=== PATIENT | female | born 1985 | race Caucasian/White ===

== ENCOUNTER 2018-08-26 02:06 | Inpatient (IN) | payer MEDICAID ==
[2018-08-26] VITALS (21 sets, daily range): BP systolic 84–116; BP diastolic 43–86; Ht 160 cm; Wt 78.1 kg
[~2018-08-26] VITALS: Ht 160 cm; Wt 78.1 kg
[2018-08-26] MEDS ORDERED: NEURONTIN800 MG PO (02:23)
[2018-08-26] MEDS ORDERED: ATIVAN0.5 MG PO (02:23)
[2018-08-26] MEDS ORDERED: LITHOBID 300 M300 MG PO (02:23)
[2018-08-26] MEDS ORDERED: BUTALB-APAP-CA1 EACH PO (02:23)
[2018-08-26] MEDS ORDERED: SEROQUEL200 MG PO (02:23)
[2018-08-26 02:26] LABS: HEMATOCRIT 34.5 % (36.0-48.0); HEMOGLOBIN 11.2 g/dL (12-16); LYMPHOCYTES 14.5 % (15-50); MCH 30.1 pg (26.0-34.0); MCHC 32.5 g/dL (31.0-37.0); MCV 92.7 fL (80.0-100.0); MEAN PLATELET VOLUME 8.6 fL (7.4-10.4); NEUTROPHILS 81.2 % (40-80); PLATELET COUNT 290 10x3/uL (130-400); RBC 3.72 10x6/uL (4.00-5.40); RDW 16.3 % (11.5-14.5); WBC 15.2 10x3/uL (4.8-10.8)
[2018-08-26 02:37] LABS: LITHIUM 2.86 mmol/L (0.60-1.20); SALICYLATES 4.3 mg/dL (2.8-20.0)
[2018-08-26 02:39] LABS: ALBUMIN 3.6 g/dL (3.4-5.0); ALKALINE PHOSPHATASE 103 U/L (46-116); ALT (SGPT) 46 U/L (10-68); BILIRUBIN - TOTAL 0.23 mg/dL (0.2-1.3); CALC OSMOLALITY 270 mosm/kg (275-300); CHLORIDE - SERUM 104 mmol/L (98-107); CREATININE - SERUM 0.8 mg/dL (0.6-1.3); GLUCOSE 83 mg/dL (74-106); MAGNESIUM - SERUM 1.9 mg/dL (1.8-2.4); POTASSIUM - SERUM 3.5 mmol/L (3.5-5.1); PROTEIN - SERUM 8.1 g/dL (6.4-8.2); SODIUM 137 mmol/L (136-145); UREA NITROGEN 8 mg/dL (7-18); eGFR NON AFRICAN AMERICAN 86 mL/min (90-120)
--- NOTE | 2018-08-26 03:06 | NUR ---
PATIENT HAS NS INFUSING AT THIS TIME TO LEFT FA VIA PUMP.
--- NOTE | 2018-08-26 03:07 | NUR ---
PATIENT LAYING IN BED WATCHING TV, RESP REGULAR. NO DISTRESS.
--- NOTE | 2018-08-26 03:24 | NUR ---
REPORT GIVEN TO BERTHA POWERS.
--- NOTE | 2018-08-26 03:46 | NUR ---
NS STOP TIME IS 7870.
--- NOTE | 2018-08-26 03:55 | NUR ---
RECEIVED PT TO ROOM 2308 VIA WHEELCHAIR FROM THE ED. PT IS AWAKE, ALERT, AND ORIENTED X4. PT ADMITS THAT SHE TOOK LITHIUM INTENTIONALLY TO CAUSE HERSELF HARM. PT IS CONCERNED ABOUT GOING TO INPATIENT PSYCH, BUT AGREES THAT SHE NEEDS TO. ADMISSION ASSESSMENT COMPLETED, SEE FLOWSHEET FOR DETAILS. NO SIGNS OF ACUTE DISTRESS. WILL CONTINUE TO MONITOR.
[2018-08-26] MEDS ORDERED: ZOLOFT100 MG PO (04:10)
--- NOTE | 2018-08-26 05:12 | NUR ---
PT IS RESTING IN BED WATCHING TV. PT REQUESTED TO GO TO THE BATHROOM, BEDSIDE COMMODE PROVIDED. NO SIGNS OF ACUTE DISTRESS. WILL CONTINUE TO MONITOR.
--- NOTE | 2018-08-26 07:20 | NUR ---
SHIFT REPORT RECEIVED. RESTING COMFORTABLY IN BED. IN GOOD SPIRITS. REPORTS SLIGHT DISCOMFORT ON HER BACK. HAS PIV ON LEFT FOREARM WITH NS AT 150ML/HR. PIV ON RIGHT FOREARM SL. VSS. NO FEVER NOTED. ON ROOM AIR. DENIES HAVING THOUGHTS OF HARMING SELF. SHIFT ASSESSMENT COMPLETED. SAFETY MEASURES IN PLACE. WILL CONTINUE TO MONITOR.
--- NOTE | 2018-08-26 09:00 | NUR ---
RESTING COMFORTABLY IN BED. UP TO BEDSIDE COMMODE WITH MINIMAL ASSIST. VOIDED ABOUT 400ML OF CLEAR YELLOW URINE. NO FURTHER NEEDS. WILL CONTINUE TO MONITOR.
--- NOTE | 2018-08-26 10:00 | NUR ---
OFFERED BATH AT THIS TIME. PT REFUSED. WILL LET NURSE KNOW IF SHE CHANGES HER MIND.
--- NOTE | 2018-08-26 10:51 | NUR ---
Spoke with Addy at poison control. Reported latest lithium level.
--- NOTE | 2018-08-26 12:05 | NUR ---
CALLED PLACE TO DUANE RAMIREZ PER PT REQUEST. NOTIFIED HIM THAT PATIENT HAD MADE IT TO [facility] AND WAS STABLE AT THIS TIME.
--- NOTE | 2018-08-26 14:22 | NUR ---
DR. CASILLAS RESTARTED SEROQUEL 200MG DIALY, ZOLOFT 200MG PO DAILY, AND FIORICET 1 TAB Q 4HR PRN. HE ALSO ORDERED NICOTINE PATCH.
[2018-08-26 14:31] LABS: CALC OSMOLALITY 276 mosm/kg (275-300); CALCIUM 8.4 mg/dL (8.5-10.1); CARBON DIOXIDE 24.8 mmol/L (21.0-32.0); CHLORIDE - SERUM 107 mmol/L (98-107); CREATININE - SERUM 0.9 mg/dL (0.6-1.3); GLUCOSE 102 mg/dL (74-106); POTASSIUM - SERUM 3.2 mmol/L (3.5-5.1); SODIUM 140 mmol/L (136-145); UREA NITROGEN 6 mg/dL (7-18); eGFR NON AFRICAN AMERICAN 75 mL/min (90-120)
--- NOTE | 2018-08-26 17:52 | MORECARE ---
CASE MANAGEMENT DISCHARGE SUMMARY PATIENT: ANNALEE ZALDIVAR UNIT: [id number] ADM DATE: 08/26/18 AGE: 33 : 83 SEX: F ROOM/BED: D.2308 AUTHOR: SHARAD AGUILAR PHYSICIAN: REFERRING PHYSICIAN: AVRIL SINHA MD DATE OF SERVICE: 08/26/18 Discharge Plan Patient Name: ANNALEE ZALDIVAR [facility] [facility] 1985 Planned Disposition: Psych facility Anticipated Discharge Date: Discharge Date: Expected LOS: Initial Reviewer: [email or web address] Initial Review Date: 08/26/2018 Generated: 08/26/18 6:51 pm Patient Name: ANNALEE ZALDIVAR Page [id number] at 1752 All edits/amendments must be made on the electronic document DICTATION DATE: 08/26/181750 MUSIC PUBLICIST: MERE 08/26/181750 RPT#: [id number] DC DATE: STATUS: ADM IN [facility] [address] [place] [address] END OF REPORT
--- NOTE | 2018-08-26 18:00 | MORECARE ---
CASE MANAGEMENT DISCHARGE SUMMARY PATIENT: ANNALEE ZALDIVAR UNIT: [id number] ADM DATE: 08/26/18 AGE: 33 : 81 SEX: F ROOM/BED: D.2308 AUTHOR: SHARAD AGUILAR PHYSICIAN: REFERRING PHYSICIAN: AVRIL SINHA MD DATE OF SERVICE: 08/26/18 Discharge Plan Patient Name: ANNALEE ZALDIVAR [facility] [facility] 1985 Planned Disposition: Psych facility Anticipated Discharge Date: Discharge Date: Expected LOS: Initial Reviewer: [email or web address] Initial Review Date: 08/26/2018 Generated: 08/26/18 7:00 pm Comments DCP- Discharge Planning Updated by [email or web address]: Alejandra Scott on 08/26/18 4:[address] Patient Name: ANNALEE ZALDIVAR Admission Status: ER Accout number: [id number] Admission Date: 08-26-2018 : 1985 Admission Diagnosis: Attending: AVRIL SINHA Current LOS: 1 Anticipated DC Date: Planned Disposition: Psych facility Primary Insurance: MEDICAID [place] Discharge Planning Comments: CM will plan for patient to be discharged to inpatient psychiatric facility upon discharge. Patient agrees to this and is voluntary at this time. Once patient is medically stable for discharge. CM will contact transfer center once stable for discharge. CM will continue to follow and assist as needed with discharge planning / needs. Slipper Maker: Alejandra Scott Last DP export: 08/26/18 4:52 p Patient Name: ANNALEE ZALDIVAR Page [phone] at 1800 All edits/amendments must be made on the electronic document DICTATION DATE: 08/26/18 1800 FRONT COUNTER ATTENDANT: MERE 08/26/18 1800 RPT#: [id number] DC DATE: STATUS: ADM IN [place] [address] [place] [address] END OF REPORT
--- NOTE | 2018-08-26 19:01 | NUR ---
REPORT RECEIVED, CARE ASSUMED. PT IS RESTING IN BED WATCHING TV AT THIS TIME. NO NEEDS VOICED/NOTED. INITIAL ASSESSMENT COMPLETED, SEE FLOWSHEET FOR DETAILS. NO SIGNS OF ACUTE DISTRESS. WILL CONTINUE TO MONITOR.
--- NOTE | 2018-08-26 21:00 | NUR ---
AWAKE AND ALERT. DENIES ANY COMPLAINTS AT THIS TIME. VSS.
--- NOTE | 2018-08-26 23:00 | NUR ---
REASSESSMENT COMPLETED PER FLOW SHEET WITH NO CHANGES OR DISTRESS OBSERVED. CALL LIGHT IN REACH.
[2018-08-27] VITALS (11 sets, daily range): BP systolic 79–109; BP diastolic 49–72
--- NOTE | 2018-08-27 01:00 | NUR ---
RESTING WITH EYES CLOSED. ROUSES EASILY. ALERT AND ORIENTED. VSS. NO ACUTE DISTRESS OBSERVED. CALL LIGHT IN REACH
--- NOTE | 2018-08-27 03:00 | NUR ---
PT BP LOW. AWKANED. ROUSED EASILY. ALERT AND ORIENTED X 4. ASYMPTOMATIC WILL CONTINUE TO MONITOR.
--- NOTE | 2018-08-27 03:30 | NUR ---
PT AWAKE AND ALERT BP UP TO 101/67. NO ACUTE DISTRESS OBSERVED.
[2018-08-27 04:53] LABS: BASOPHILS 0.4 % (0-2); EOSINOPHILS 3.2 % (0-7); HEMATOCRIT 30.6 % (36.0-48.0); HEMOGLOBIN 9.5 g/dL (12-16); IMMATURE GRANULOCYTES 0.2 % (0-5); MCH 29.1 pg (26.0-34.0); MCV 93.6 fL (80.0-100.0); MEAN PLATELET VOLUME 9.6 fL (7.4-10.4); MONOCYTES 6.9 % (2-11); NEUTROPHILS 67.3 % (40-80); PLATELET COUNT 264 10x3/uL (130-400); RBC 3.27 10x6/uL (4.00-5.40); RDW 16.9 % (11.5-14.5)
[2018-08-27 04:56] LABS: WBC 9.9 10x3/uL (4.8-10.8)
--- NOTE | 2018-08-27 05:00 | NUR ---
RESTING WITH EYES CLOSED. ROUSES EASILY. NO ACUTE DISTRESS OBSERVED. CALL LIGHT IN REACH.
[2018-08-27 05:25] LABS: ALBUMIN 2.7 g/dL (3.4-5.0); ALKALINE PHOSPHATASE 90 U/L (46-116); ALT (SGPT) 44 U/L (10-68); BILIRUBIN - TOTAL 0.31 mg/dL (0.2-1.3); CALC OSMOLALITY 280 mosm/kg (275-300); CALCIUM 7.7 mg/dL (8.5-10.1); CARBON DIOXIDE 21.6 mmol/L (21.0-32.0); CHLORIDE - SERUM 110 mmol/L (98-107); CREATININE - SERUM 0.7 mg/dL (0.6-1.3); GLUCOSE 97 mg/dL (74-106); POTASSIUM - SERUM 3.6 mmol/L (3.5-5.1); PROTEIN - SERUM 6.4 g/dL (6.4-8.2); SODIUM 142 mmol/L (136-145); eGFR NON AFRICAN AMERICAN > 90 mL/min (90-120)
[2018-08-27 05:39] LABS: UREA NITROGEN 8 mg/dL (7-18)
--- NOTE | 2018-08-27 07:00 | NUR ---
DR. SINHA NOTIFIED OF PT LOW BP DURING THE NIGHT . NO NEW ORDERS AT THIS TIME
--- NOTE | 2018-08-27 08:22 | NUR ---
AM MEDS GIVEN. ATE 100% OF BREAKFAST. REQUESTED AN EXTRA BISCUIT WITH GERONIMO. NO FURTHER NEEDS. WILL CONTINUE TO MONITOR.
--- NOTE | 2018-08-27 10:04 | NUR ---
CASE MANAGEMENT WORKING ON TRANSFER ORDERS.
--- NOTE | 2018-08-27 10:08 | MORECARE ---
CASE MANAGEMENT DISCHARGE SUMMARY PATIENT: ANNALEE ZALDIVAR UNIT: [id number] ADM DATE: 08/26/18 AGE: 33 : 81 SEX: F ROOM/BED: D.2308 AUTHOR: SHARAD AGUILAR PHYSICIAN: REFERRING PHYSICIAN: AVRIL SINHA MD DATE OF SERVICE: 08/27/18 Discharge Plan Patient Name: ANNALEE ZALDIVAR [facility] [facility] 1985 Planned Disposition: Psych facility Anticipated Discharge Date: Discharge Date: Expected LOS: Initial Reviewer: [email or web address] Initial Review Date: 08/26/2018 Generated: 08/27/18 11:08 am Comments DCP- Discharge Planning Updated by [email or web address]: Alejandra Scott on 08/26/18 4:[address] Patient Name: ANNALEE ZALDIVAR Admission Status: ER Accout number: [id number] Admission Date: 08-26-2018 : 1985 Admission Diagnosis: Attending: AVRIL SINHA Current LOS: 1 Anticipated DC Date: Planned Disposition: Psych facility Primary Insurance: MEDICAID [place] Discharge Planning Comments: CM will plan for patient to be discharged to inpatient psychiatric facility upon discharge. Patient agrees to this and is voluntary at this time. Once patient is medically stable for discharge. CM will contact transfer center once stable for discharge. CM will continue to follow and assist as needed with discharge planning / needs. Visitor Use Assistant: Alejandra Scott External Providers External Provider: [facility] Next Contact Date: Service Request Date: Service Type: Resolution: Reviewer: Comments: Last DP export: 08/26/18 5:00 p Patient Name: ANNALEE ZALDIVAR Page 29817 at 1008 All edits/amendments must be made on the electronic document DICTATION DATE: 08/27/18 100 TABLE WORKER PACKAGER: MERE 08/27/18 1008 RPT#: [id number] DC DATE: STATUS: ADM IN [facility] [address] [place] [address] END OF REPORT
--- NOTE | 2018-08-27 11:36 | MORECARE ---
CASE MANAGEMENT DISCHARGE SUMMARY PATIENT: ANNALEE ZALDIVAR UNIT: [id number] ADM DATE: 08/26/18 AGE: 33 : 81 SEX: F ROOM/BED: D.2308 AUTHOR: SHARAD AGUILAR PHYSICIAN: REFERRING PHYSICIAN: AVRIL SINHA MD DATE OF SERVICE: 08/27/18 Discharge Plan Patient Name: ANNALEE ZALDIVAR [facility] [facility] 1985 Planned Disposition: Psych facility Anticipated Discharge Date: Discharge Date: Expected LOS: Initial Reviewer: [email or web address] Initial Review Date: 08/26/2018 Generated: 08/27/18 12:35 pm Comments DCP- Discharge Planning Updated by [id number]: Alejandra Scott on 08/26/18 4:[address] Patient Name: ANNALEE ZALDIVAR Admission Status: ER Accout number: [id number] Admission Date: 08-26-2018 : 1985 Admission Diagnosis: Attending: AVRIL SINHA Current LOS: 1 Anticipated DC Date: Planned Disposition: Psych facility Primary Insurance: MEDICAID [place] Discharge Planning Comments: CM will plan for patient to be discharged to inpatient psychiatric facility upon discharge. Patient agrees to this and is voluntary at this time. Once patient is medically stable for discharge. CM will contact transfer center once stable for discharge. CM will continue to follow and assist as needed with discharge planning / needs. Returned Materials Inspector: Alejandra Scott External Providers External Provider: [facility] (Inpt Adult Psych) Next Contact Date: Service Request Date: Service Type: Resolution: Reviewer: Comments: Last DP export: 08/27/18 9:08 a Patient Name: ANNALEE ZALDIVAR Page 38869 at 1136 All edits/amendments must be made on the electronic document DICTATION DATE: 08/27/18 113 INTERNATIONAL LOGISTICS ANALYST: MERE 08/27/18 113 RPT#: [id number] DC DATE: STATUS: ADM IN [facility] [address] [place] [address] END OF REPORT
--- NOTE | 2018-08-27 13:19 | MORECARE ---
CASE MANAGEMENT DISCHARGE SUMMARY PATIENT: ANNALEE ZALDIVAR UNIT: [id number] ADM DATE: 08/26/18 AGE: 33 : 81 SEX: F ROOM/BED: D.2308 AUTHOR: SHARAD AGUILAR PHYSICIAN: REFERRING PHYSICIAN: AVRIL SINHA MD DATE OF SERVICE: 08/27/18 Discharge Plan Patient Name: ANNALEE ZALDIVAR [facility] [facility] 1985 Planned Disposition: Psych facility Anticipated Discharge Date: Discharge Date: Expected LOS: Initial Reviewer: [email or web address] Initial Review Date: 08/26/2018 Generated: 08/27/18 2:18 pm Comments DCP- Discharge Planning Updated by [email or web address]: Alejandra cSott on 08/26/18 4:[address] Patient Name: ANNALEE ZALDIVAR Admission Status: ER Accout number: [id number] Admission Date: 08-26-2018 : 1985 Admission Diagnosis: Attending: AVRIL SINHA Current LOS: 1 Anticipated DC Date: Planned Disposition: Psych facility Primary Insurance: MEDICAID [place] Discharge Planning Comments: CM will plan for patient to be discharged to inpatient psychiatric facility upon discharge. Patient agrees to this and is voluntary at this time. Once patient is medically stable for discharge. CM will contact transfer center once stable for discharge. CM will continue to follow and assist as needed with discharge planning / needs. Security Rover: Alejandra Scott External Providers External Provider: [facility] Next Contact Date: Service Request Date: Service Type: Resolution: Reviewer: Comments: Last DP export: 08/27/18 10:35 a Patient Name: ANNALEE ZALDIVAR Page 65360 at 1319 All edits/amendments must be made on the electronic document DICTATION DATE: 08/27/181317 HAND I THERMAL CUTTER: MERE 08/27/181317 RPT#: [id number] DC DATE: STATUS: ADM IN [facility] [address] [place] [address] END OF REPORT
--- NOTE | 2018-08-27 14:51 | CN ---
PATIENT NAME:ANNALEE ZALDIVAR MEDICAL RECORD: [id number] : 81 LOCATION:[id number] ADMIT DATE: 08/26/18 ACCOUNT: [id number] CONSULTING PHYSICIAN: DELMER MCDANIEL MD REFERRING PHYSICIAN: AVRIL SINHA MD DATE OF CONSULTATION: 08/26/2018 PSYCHIATRIC CONSULTATION IDENTIFYING DATA: The patient is 33 years old and she was admitted to the hospital on a voluntary basis because of a lithium overdose. The patient took a large amount of her prescription for lithium. She said she did this because a man is stalking her and she is afraid of him. The man is apparently a convicted felon who, she says, is a dangerous individual. She says that she has told the police about him before, but they are not doing anything about it. She says the man used to date her mother, but now he is mad at her for reasons I could not understand. She says that he is threatening to steal her [id number] child and kill her. She denies any thoughts of wanting to harm herself. She denies any thoughts of wanting to harm the baby. She says she took the overdose as an impulsive thing and at that time thought that it was a way out of this dilemma. She endorses numerous neurovegetative depressive symptoms and was just released from a psychiatric inpatient facility 2 weeks ago. MENTAL STATUS EXAMINATION: The patient is awake; alert; and oriented to person, place, time, and situation. Her mood is depressed. Her affect is constricted. Thought processes are disorganized. Memory, concentration, and abstraction abilities are moderately impaired. She denies that she would harm others. She denies auditory and visual hallucinations. She says she does not want to hurt herself. ASSESSMENT: 1. Bipolar disorder. 2. Status post lithium overdose. PLAN: The patient is clearly delusional. I think that the information she is giving me about the stalking may have some truth to it, but in large part, I think it is not reality based. Clearly, she is making very bad and impulsive judgments. She says she loves her child and would never do anything to hurt the child, but nevertheless, she really did not think this through that hurting herself would somehow leave the child worse off than the child is now. She wants the police to take care of this man who is reportedly threatening her and again the reasons for the threatening are very disorganized. Apparently, the man has a daughter and the daughter had twins who and somehow he is blaming Annalee for this. That was the best I could understand, but it truly did not make much sense. I think it is appropriate to confine her to an inpatient psychiatric stay and I would recommend that once she is medically stabilized, she will be transferred to an inpatient facility. She is agreeable to this. TRANSINT:[id number] Voice Confirmation ID: [id number] DOCUMENT ID: [id number] CONSULT REPORT [id number] ANNALEE ZALDIVAR PETER MD at 1451 CC: [id number] DICTATION DATE: 08/26/18 1409 CARDIAC REHABILITATION SPECIALIST: 08/26/18 1433 ADM IN [facility] [address] [place] [address]
--- NOTE | 2018-08-27 18:47 | MORECARE ---
CASE MANAGEMENT DISCHARGE SUMMARY PATIENT: ANNALEE ZALDIVAR UNIT: [id number] ADM DATE: 08/26/18 AGE: 33 : 81 SEX: F ROOM/BED: D.2308 AUTHOR: SHARAD AGUILAR PHYSICIAN: REFERRING PHYSICIAN: AVRIL SINHA MD DATE OF SERVICE: 08/27/18 Discharge Plan Patient Name: ANNALEE ZALIDVAR [facility] : 1985 Planned Disposition: Psych facility Anticipated Discharge Date: Discharge Date: 08/27/2018 Expected LOS: Initial Reviewer: [email or web address] Initial Review Date: 08/26/2018 Generated: 08/27/18 7:46 pm Comments DCP- Discharge Planning Updated by [email or web address]: Alejandra Scott on 08/27/18 5:[address] CM received notice that patient was medically cleared for inpatient psych placement. CM called transfer center and faxed records. CM received denial from [place] and [facility]. [facility] in accepted patient and she should go to room 801B. Nursing to call report. [facility] notified of transfer. Hopefully will be able to transport within the hour. CM will continue to follow and assist as needed with discharge planning / needs DCP- Discharge Planning Updated by [email or web address]: Alejandra Scott on 08/26/18 4:[address] Patient Name: ANNALEE ZALDIVAR Admission Status: ER Accout number: [id number] Admission Date: 08-26-2018 : 1985 Admission Diagnosis: Attending: AVRIL SINHA Current LOS: 1 Anticipated DC Date: Planned Disposition: Psych facility Primary Insurance: MEDICAID [place] Discharge Planning Comments: CM will plan for patient to be discharged to inpatient psychiatric facility upon discharge. Patient agrees to this and is voluntary at this time. Once patient is medically stable for discharge. CM will contact transfer center once stable for discharge. CM will continue to follow and assist as needed with discharge planning / needs. Keeler Polygraph Operator: Alejandra Scott Last DP export: 08/27/18 12:18 p Patient Name: ANNALEE ZALDIVAR Page 65883 at 1847 All edits/amendments must be made on the electronic document DICTATION DATE: 08/27/181845 DIRECTOR OF DIGITAL PLATFORMS: MERE 08/27/181845 RPT#: [id number] DC DATE:08/27/18 STATUS: DIS IN [facility] [address] [place] [address] END OF REPORT
--- NOTE | 2018-08-28 18:09 | MORECARE ---
CASE MANAGEMENT DISCHARGE SUMMARY PATIENT: ANNALEE ZALDIVAR UNIT: [id number] ADM DATE: 08/26/18 AGE: 33 : 81 SEX: F ROOM/BED: D.2308 AUTHOR: SHARAD AGUILAR PHYSICIAN: REFERRING PHYSICIAN: AVRIL SINHA MD DATE OF SERVICE: 08/28/18 Discharge Plan Patient Name: ANNALEE ZALDIVAR [facility]:[place] : 1985 Planned Disposition: Psych facility Anticipated Discharge Date: Discharge Date: 08/27/2018 Expected LOS: Initial Reviewer: [email or web address] Initial Review Date: 08/26/2018 Generated: 08/28/18 7:09 pm Comments DCP- Discharge Planning Updated by [email or web address]: Alejandra Scott on 08/27/18 5:[address] CM received notice that patient was medically cleared for inpatient psych placement. CM called transfer center and faxed records. CM received denial from [facility] and [facility]. [facility] in accepted patient and she should go to room 801B. Nursing to call report. [facility] notified of transfer. Hopefully will be able to transport within the hour. CM will continue to follow and assist as needed with discharge planning / needs DCP- Discharge Planning Updated by [email or web address]: Alejandra Scott on 08/26/18 4:[address] Patient Name: ANNALEE ZALDIVAR Admission Status: ER Accout number: [id number] Admission Date: 08-26-2018 : 1985 Admission Diagnosis: Attending: AVRIL SINHA Current LOS: 1 Anticipated DC Date: Planned Disposition: Psych facility Primary Insurance: MEDICAID [place] Discharge Planning Comments: CM will plan for patient to be discharged to inpatient psychiatric facility upon discharge. Patient agrees to this and is voluntary at this time. Once patient is medically stable for discharge. CM will contact transfer center once stable for discharge. CM will continue to follow and assist as needed with discharge planning / needs. Recycler: Alejandra Scott Last DP export: 08/27/18 5:47 p Patient Name: ANNALEE ZALDIVAR Page 09690 at 1809 All edits/amendments must be made on the electronic document DICTATION DATE: 08/28/181808 SITE SAFETY REPRESENTATIVE: MERE 08/28/181808 RPT#: [id number] DC DATE:08/27/18 STATUS: DIS IN [facility] [address] [place] [address] END OF REPORT
== END 2018-08-27 16:15 | disposition short-term general hospital (02) | DRG 918 ==
LOC: D.ER 02:06 → D.EDHOLD 02:16 → D.ICU 02:16
PROVIDERS: Family Medicine; ADMIT Internal Medicine Nephrology; ATTEND Internal Medicine Nephrology
DX: T43.592A Poisoning by other antipsychotics and neuroleptics, intentional self-harm, initial encounter (principal); R45.851 Suicidal ideations; F31.9 Bipolar disorder, unspecified